=== PATIENT | female | born 1945 ===

== ENCOUNTER → 2018-06-28 17:30 | Outpatient (REF) | payer OTHER, SELFPAY ==
[2018-06-28 18:23] LABS: Erythrocyte Sedimentation Rate 3 MM/HR (0-20)
== END ==
LOC: LAB 17:30
PROVIDERS: Visit Provider Emergency Medicine Emergency Medical Services
DX: R94.4 Abnormal results of kidney function studies (principal); E78.5 Hyperlipidemia, unspecified
CPT/HCPCS: 85651